=== PATIENT | male | born 1990 | race Caucasian/White ===

== ENCOUNTER 2017-06-12 18:47 | Emergency (ER) | payer MEDICAID ==
[~2017-06-12] VITALS: Ht 182.9 cm; Wt 87.6 kg
[2017-06-12 19:01] VITALS: BP 143/87; Ht 182.9 cm; Wt 87.6 kg
== END 2017-06-12 21:50 | disposition home or self-care (01) ==
LOC: ED 18:47
DX: J02.8 Acute pharyngitis due to other specified organisms (principal); R03.0 Elevated blood-pressure reading, without diagnosis of hypertension
CPT/HCPCS: J1100